=== PATIENT | male | born 1990 | race Two or more races ===

== ENCOUNTER 2016-03-27 14:59 | Emergency (ER) | payer OTHER ==
[~2016-03-27] VITALS: Ht 175.3 cm; Wt 113.4 kg
[2016-03-27] MEDS ORDERED: IBUPROFEN 400 MG TABLET ONE (15:13)
[2016-03-27] MEDS ORDERED: ACETAMINOPHEN ES 500 MG TABLET ONE (15:14)
[2016-03-27] MEDS ORDERED: IBUPROFEN 600 MG TABLET PO ONE (15:30)
[2016-03-27] MEDS ORDERED: ACETAMINOPHEN ES 500 MG TABLET PO ONE (15:30)
[2016-03-27 15:56] VITALS: BP 140/75
== END 2016-03-27 15:57 | disposition home or self-care (01) ==
LOC: ER 15:00
DX: J40 Bronchitis, not specified as acute or chronic (principal)
CPT/HCPCS: 71010; 99283; A4606; Z7610